=== PATIENT | female | born 1995 | race Caucasian/White ===

== ENCOUNTER 2018-01-22 11:12 | Emergency (ER) | payer SELFPAY ==
[2018-01-22] MEDS: ACETAMINOPHEN 500 MG TAB PO (11:31)
== END 2018-01-22 12:23 | disposition home or self-care (01) ==
LOC: FTE 11:12
DX: T74.11XA Adult physical abuse, confirmed, initial encounter (principal); S69.92XA Unspecified injury of left wrist, hand and finger(s), initial encounter; Y04.8XXA Assault by other bodily force, initial encounter
CPT/HCPCS: 70490; 73130-LT; 81025; 99284-25